=== PATIENT | female | born 1940 | race Hispanic/Latino ===

== ENCOUNTER 2016-10-18 11:18 | Observation (INO) | payer MEDICAID, OTHER ==
[2016-10-18 11:21] VITALS: BMI 25.9
--- NOTE | 2016-10-18 11:43 | ED PDOC ---
HPI: General Adult Time Seen by Provider: 10/18/16 11:42 Chief Complaint (Nursing): Trauma Chief Complaint (Provider): fall History Per: Patient, EMS Additional Complaint(s): 76 year old female with no past medical history presents to ED with facial and head trauma s/p accidental trip and fall. Patient was walking outside when she tripped on sidewalk and fell face forward hitting the ground. She did not sustain LOC, she denies dizziness or syncope prior to fall. She has been able to walk since time of fall and denies any upper or lower extremity injuries. Patient states tetanus is up to date. She arrives via ambulance. Past Medical History Reviewed: Historical Data, Nursing Documentation, Vital Signs Vital Signs: Last Vital Signs Temp 98.2 F 10/18/16 11:22 Pulse 81 10/18/16 11:22 Resp 17 10/18/16 11:22 BP 148/85 10/18/16 11:22 Pulse Ox 98 10/18/16 15:34 - Medical History PMH: No Chronic Diseases - Surgical History Other surgeries: benign tumor of breast removed, "removal of benign vaginal tumor" - Family History Family History: States: No Known Family Hx - Living Arrangements Living Arrangements: With Family - Social History Current smoker - smoking cessation education provided: No Alcohol: < 2 Drinks/Day (drinks wine every night) Drugs: Denies - Immunization History Hx Tetanus Toxoid Vaccination: Yes - Home Medications Home Medications: Ambulatory Orders Medication Instructions Recorded Biotin [Biotin] 1 cap PO DAILY 10/18/16 Cholecalciferol [Vitamin D 1000 IU] 1,000 unit PO DAILY 10/18/16 Escitalopram [Lexapro] 20 mg PO DAILY 10/18/16 - Allergies Allergies/Adverse Reactions: Allergies Allergy/AdvReac Type Severity Reaction Status Date / Time No Known Allergies Allergy Verified 10/18/16 11:34 Review of Systems ROS Statement: Except As Marked, All Systems Reviewed And Found Negative ENT: Positive for: Other (facial trauma s/p fall) Neurological: Positive for: Other (head injury with no LOC). Negative for: Dizziness Physical Exam - Reviewed Nursing Documentation Reviewed: Yes Vital Signs Reviewed: Yes - Physical Exam Appears: Positive for: Well, Non-toxic, No Acute Distress Skin: Negative for: Rash Eye Exam: Positive for: EOMI, PERRL, Other (left periorbital contusion noted, no conjunctival erythema or hemorrhage noted) ENT: Positive for: Other (moderate swelling to left maxillary region, full rom lower mandible, no dental fractures, superficial lower lip laceration not involving nicolas border with no active bleeding) Neck: Positive for: Painless ROM. Negative for: Pain On Movement Of Neck Cardiovascular/Chest: Positive for: Regular Rate, Rhythm Respiratory: Positive for: Normal Breath Sounds Extremity: Positive for: Normal ROM. Negative for: Tenderness, Deformity, Swelling Neurologic/Psych: Positive for: Alert, Oriented - Laboratory Results Result Diagrams: 10/18/16 15:01 10/18/16 15:01 - ECG Interpretation Of ECG: NSR 71 bpm, no acute finding, reviewed by PA and ED attending O2 Sat by Pulse Oximetry: 98 Pulse Ox Interpretation: Normal - Other Rad CT head X-Ray: Read By Radiologist X-Ray Interpretation: see below CT facial bones X-Ray: Read By Radiologist X-Ray Interpretation: see below CXR X-Ray: Viewed By Me, Read By Radiologist X-Ray Interpretation: Opacity at medial right lung base, possibly artifact from oblique position Medical Decision Making Medical Decision Makin76 year old with head and facial trauma. Patient is awake and alert x 3 upon arrival. Plan: CT head and facial bones PO tylenol CT head: IMPRESSION: Very small right convexity subarachnoid hemorrhage. Fluid in left maxillary antrum consistent with left maxillary fracture. See report of CT maxillofacial of same date. These findings were discussed by telephone with ANDRES Zamora at 1:[address] p[address]m. on 10/18/2016 CT facial bones: FINDINGS: NASAL BONES: There is a nondisplaced fracture of the base of left nasal bone. There is no right nasal fracture. Anterior maxillary spine is intact. ORBITS: There is a subtle nondisplaced fracture of the left orbital floor. This is best demonstrated on the reformatted sagittal views. The lamina papyracea is intact. There is no intraorbital hemorrhage. The globes are rounded and symmetric. PARANASAL SINUSES/ MASTOIDS: There is fracture of the anterior wall/ floor of left maxillary sinus. There is dependent fluid/blood in the left maxillary antrum. MAXILLA: See above. Extensive soft tissue swelling left infraorbital extending into left inferior palpebrum. There is a saurabh soft tissue hematoma seen in the inferior left maxillary soft tissues. MANDIBLE/ TEMPOROMANDIBULAR JOINTS: Unremarkable. SKULL BASE: Unremarkable. TEMPORAL BONES: Middle ears and mastoid grossly unremarkable. OTHER FINDINGS: None. IMPRESSION: Nondisplaced fracture left orbital floor. Fracture anterior wall/floor of left maxillary sinus. Blood in left maxillary antrum. Fracture base of left nasal bone. Extensive soft tissue swelling/ hemorrhage left maxillary extending to left inferior palpebrum. Case was d/w neurosurgery leaf conditioner helper, Dr. Iyer who states that no neurosurgical intervention is indicated with above CT head finding. PMD is Dr. Leon who states to admit patient for observation and q4hr neuro checks. Dr. Lenz, hospitalist to admit patient. Patient is aware of and agrees with admission. Disposition - Clinical Impression Clinical Impression: Subarachnoid bleed, Facial fracture, Fall - Patient ED Disposition Is Patient to be Admitted: Yes - Disposition Disposition Time: 15:34 Condition: FAIR - Pt Status Changed To: Hospital Disposition Of: Observation - POA Present On Arrival: None Results - Lab Results Lab Results: 10/18/16 10/18/16 10/18/16 15:01 15:01 15:01 WBC 9.8 RBC 4.52 Hgb 12.9 Hct 38.5 MCV 85.1 MCH 28.4 MCHC 33.4 RDW 14.3 Plt Count 234 MPV 7.7 Neut % (Auto) 77.3 H Lymph % (Auto) 16.3 L [place] % (Auto) 5.1 Eos % (Auto) 0.7 Baso % (Auto) 0.6 Neut # 7.6 H Lymph # 1.6 [place] # 0.5 Eos # 0.1 Baso # 0.1 PT 11.3 INR 1.1 APTT 27.1 Sodium 138 Potassium 4.0 Chloride 105 Carbon Dioxide 24 Anion Gap 14 BUN 17 Creatinine 0.7 Est GFR ( Amer) > 60 Est GFR (Non-Af Amer) > 60 Random Glucose 118 H Calcium 9.6 Total Bilirubin 0.4 AST 38 H ALT 46 Alkaline Phosphatase 69 Total Protein 7.5 Albumin 4.4 Globulin 3.0 Albumin/Globulin Ratio 1.5
--- NOTE | 2016-10-18 14:01 | CT ---
PROCEDURE: CT HEAD WITHOUT CONTRAST. HISTORY: trauma COMPARISON: None available. TECHNIQUE: Axial computed tomography images were obtained through the head/brain without intravenous contrast. Radiation dose: Total exam DLP = 855.04 mGy-cm. This CT exam was performed using one or more of the following dose reduction techniques: Automated exposure control, adjustment of the mA and/or kV according to patient size, and/or use of iterative reconstruction technique. FINDINGS: HEMORRHAGE: Very small amount of subarachnoid blood over the right frontal convexity. No evidence of subpleural or epidural hemorrhage. No parenchymal hemorrhage. BRAIN: No mass effect or edema. Minimal age-appropriate atrophy. VENTRICLES: No hydrocephalus. No intraventricular hemorrhage. No midline shift. No evidence of downward herniation. Basilar cisterns preserved. CALVARIUM: Unremarkable. PARANASAL SINUSES: Dependent fluid within left maxillary antrum consistent with fracture of lateral wall left maxillary antrum demonstrated on CT maxillofacial of same date. MASTOID AIR CELLS: Unremarkable as visualized. No inflammatory changes. OTHER FINDINGS: None. IMPRESSION: Very small right convexity subarachnoid hemorrhage. Fluid in left maxillary antrum consistent with left maxillary fracture. See report of CT maxillofacial of same date. These findings were discussed by telephone with ANDRES Zamora at 1:55 p.m. on 10/18/2016
[2016-10-18] MEDS ORDERED: Sodium Chloride 0.9% 1,000 ML IV STA (14:03)
--- NOTE | 2016-10-18 14:34 | CT ---
PROCEDURE: CT MAXILLOFACIAL BONES WITHOUT CONTRAST HISTORY: trauma COMPARISON: None TECHNIQUE: Contiguous axial CT images of the maxillofacial bones were obtained. Coronal and sagittal reformats were generated. Radiation dose: Total exam DLP = 718.67 mGy-cm. This CT exam was performed using one or more of the following dose reduction techniques: Automated exposure control, adjustment of the mA and/or kV according to patient size, and/or use of iterative reconstruction technique. FINDINGS: NASAL BONES: There is a nondisplaced fracture of the base of left nasal bone. There is no right nasal fracture. Anterior maxillary spine is intact. ORBITS: There is a subtle nondisplaced fracture of the left orbital floor. This is best demonstrated on the reformatted sagittal views. The lamina papyracea is intact. There is no intraorbital hemorrhage. The globes are rounded and symmetric. PARANASAL SINUSES/ MASTOIDS: There is fracture of the anterior wall/ floor of left maxillary sinus. There is dependent fluid/blood in the left maxillary antrum. MAXILLA: See above. Extensive soft tissue swelling left infraorbital extending into left inferior palpebrum. There is a saurabh soft tissue hematoma seen in the inferior left maxillary soft tissues. MANDIBLE/ TEMPOROMANDIBULAR JOINTS: Unremarkable. SKULL BASE: Unremarkable. TEMPORAL BONES: Middle ears and mastoid grossly unremarkable. OTHER FINDINGS: None. IMPRESSION: Nondisplaced fracture left orbital floor. Fracture anterior wall/floor of left maxillary sinus. Blood in left maxillary antrum. Fracture base of left nasal bone. Extensive soft tissue swelling/ hemorrhage left maxillary extending to left inferior palpebrum.
[2016-10-18 15:16] LABS: BASO # 0.1 K/uL (0.0-0.2); BASO % 0.6 % (0.0-2.0); EOS # 0.1 K/uL (0.0-0.7); EOS % 0.7 % (0.0-4.0); HEMATOCRIT 38.5 % (34.0-47.0); LYMPH # 1.6 K/uL (1.0-4.3); LYMPH % 16.3 % (20.0-40.0); MEAN CELL VOLUME 85.1 fl (81.0-99.0); MEAN CORPUSCULAR HEMOGLOBIN 28.4 pg (27.0-31.0); MEAN CORPUSCULAR HGB CONC 33.4 g/dL (33.0-37.0); MEAN PLATELET VOLUME 7.7 fl (7.2-11.7); MONO # 0.5 K/uL (0.0-0.8); MONO % 5.1 % (0.0-10.0); NEUT # 7.6 K/uL (1.8-7.0); NEUT % 77.3 % (50.0-75.0); NRBC % 0.1 % (0.0-0.0); RED CELL DISTRIBUTION WIDTH 14.3 % (11.5-14.5); WHITE BLOOD COUNT 9.8 K/uL (4.8-10.8)
--- NOTE | 2016-10-18 15:25 | RAD ---
HISTORY: clearance COMPARISON: No prior. FINDINGS: LUNGS: Questionable patchy opacity at medial right lung base. Patient is obliquely positioned and this may represent vessels. PLEURA: No significant pleural effusion identified, no pneumothorax apparent. CARDIOVASCULAR: Normal. OSSEOUS STRUCTURES: Thoracic dextroscoliosis. VISUALIZED UPPER ABDOMEN: Normal. OTHER FINDINGS: None. IMPRESSION: Opacity at medial right lung base, possibly artifact due to oblique positioning.
[2016-10-18 15:33] LABS: BLOOD UREA NITROGEN 17 mg/dl (7-17); CARBON DIOXIDE 24 mmol/L (22-30); CHLORIDE 105 mmol/L (98-107); GFR AFRICAN-AMERICAN > 60; GLUCOSE,RANDOM 118 mg/dL (65-105); SODIUM 138 mmol/l (132-148)
[2016-10-18 15:34] LABS: ALB/GLOB RATIO 1.5 (1.0-2.1); ALKALINE PHOSPHATASE 69 U/L (38-126); ALT/SGPT 46 U/L (9-52); AST/SGOT 38 U/L (14-36); BILIRUBIN,TOTAL 0.4 mg/dl (0.2-1.3); CALCIUM 9.6 mg/dL (8.4-10.2); TOTAL PROTEIN 7.5 G/DL (6.3-8.2)
[2016-10-18 15:41] LABS: PARTIAL THROMBOPLASTIN TIME 27.1 Seconds (25.6-37.1)
--- NOTE | 2016-10-18 16:20 | CP.PCM.HP ---
History of Present Illness - History of Present Illness History of Present Illness: Hospitalist Admission H&P (Patient was seen and examined in the ER Bed 18B at 3: 45 PM) PMD: Dr. Leon Very pleasant 76 year old female who presents to [facility] ER with a chief complaint of fall. Earlier today at around 10:45 AM patient was walking to the grocery store dragging a shopping cart behind her when the tip of her toe of one foot ( she can not recall which one) got caughter between the spacing in the sidewalk causing her to trip, lose her balance, and fall onto her face on the left side. She was then brought to the ER for further evaluation. Prior to the fall there was NO chest pain, NO palpitations, NO SOB, NO diaphoresis. There was NO loss of consciousness after the fall. She does not recall hitting any other part of her body other than her face. She is not experiencing any pain currently on any of her bony prominences. Patient explains that she has been preoccupied with the care of her who suffered a CVA in August 2015 causing aphasia. She states that he requires 24 hour care, that she is the sole health care provider for him, and that she just received a letter from Medicaid that he was going to be losing his coverage in 10 days. She had bumped into her town [facility] a few days ago and states that she was supposed to have a meeting with him tomorrow to see if he can help with her 's Medicaid issue. She is worried about making this [facility] with the [facility] as she fell and is now admitted to the hospital. She has arranged for neighbor to care for today and into tomorrow as she is in the hospital. Currently upon Full ROS NO chest pain, NO palpitations, NO SOB/Cough/Wheezing, NO Abdominal Pain, NO n/v /d/c, NO burning/pain with urinations, NO lightheadedness/dizziness, NO headaches, NO new changes in vision/eye pain, NO new changes in hearing/ear pain , NO paresthesias, (+) Left Facial Pain pounding in nature. PMHx: Anxiety, Astigmatism PSHx: Unspecified Breast Lumpectomy without Chemo/Radiation, Unspecified Uterine Tumor Removal (in [place] in 2000) ALL: NKDA Medications: Lexapro 20 mg PO 1x/day (confirmed with [facility] [address] [phone]) Social Hx: Instructional Paraprofessional, Lives with her , NO tobacco, (+) Alcohol: Wine 2 glasses a day, NO illicit drugs. Family Hx: Mom (Unspecified Kidney Disease, Unspecified CAD), Dad (DM unspecified type, Unspecified CAD) Present on Admission - Present on Admission Any Indicators Present on Admission: Yes History of DVT/PE: No History of Uncontrolled Diabetes: No Urinary Catheter: No Review of Systems - Review of Systems Review of Systems: Please see HPI above Past Patient History - Past Medical History & Family History Pertinent Family History: Please see HPI above - Past Social History Alcohol: < 2 Drinks/Day (drinks wine every night) Drugs: Denies Meds Allergies/Adverse Reactions: Allergies Allergy/AdvReac Type Severity Reaction Status Date / Time No Known Allergies Allergy Verified 10/18/16 11:34 Physical Exam - Constitutional Appears: Non-toxic, No Acute Distress - Head Exam Additional comments: Left Facial/Orbital Bruising with edema present - Eye Exam Eye Exam: EOMI, PERRL Pupil Exam: NORMAL ACCOMODATION, PERRL Additional comments: Left Eye scleral erythema - ENT Exam ENT Exam: Mucous Membranes Moist, Normal Exam, Normal External Ear Exam, Normal Oropharynx - Neck Exam Neck exam: Positive for: Normal Inspection Additional comments: NO lymphadenopathy NO thyromegaly - Respiratory Exam Respiratory Exam: Clear to Auscultation Bilateral, NORMAL BREATHING PATTERN Additional comments: CTA B/L NO R/R/W - Cardiovascular Exam Cardiovascular Exam: REGULAR RHYTHM, +S1, +S2 Additional comments: NS1 and NS2 NO M/R/G - GI/Abdominal Exam GI & Abdominal Exam: Normal Bowel Sounds, Soft Additional comments: BSx4 Soft NT NO HSM NO guarding/rebound tenderness - Neurological Exam Neurological exam: Alert, CN II-XII Intact, Oriented x3 - Psychiatric Exam Psychiatric exam: Anxious Additional comments: Patient is worried about being in the hospital and therefore being away from her . Results - Vital Signs Recent Vital Signs: Last Vital Signs Temp 98.2 F 10/18/16 11:22 Pulse 81 10/18/16 11:22 Resp 17 10/18/16 11:22 BP 148/85 10/18/16 11:22 Pulse Ox 98 10/18/16 15:34 - Labs Result Diagrams: 10/18/16 15:01 10/18/16 15:01 Assessment & Plan (1) Subarachnoid bleed Assessment and Plan: As per CT Head done in the ER ER Physician spoke with Neurosurgeon Dr. Iyer and no surgery recommended at this time. Repeat CT Head ordered for 8 AM 10/19/16 Follow HgB/Hct Status: Acute (2) Facial fracture Assessment and Plan: As per CT Head and CT Maxillofacial: nondisplaced fracture of left orbital floor , fracture anterior wall/floor of left maxillary sinus, blood in left maxillary antrum, fractured base of left nasal bone, extensive soft tissue swelling/ hemorrhage left maxillary extending to left inferior palpebrum NO Maxillofacial Surgeon at our hospital as per contacting office machine punch operator Patient will need to have outpatient follow up Ice Pack Q4H to help reduce the facial swelling F/U Repeat CT Head 10/19/16 Status: Acute (3) Anxiety Assessment and Plan: Lexapro 20 mg PO 1x/day Xanax 0.5 mg PO Q8H PRN Anxiety Status: Chronic (4) Chest x-ray abnormality Assessment and Plan: Chest X Ray done in the ER shows (as per report) patchy opacity right lung base likely secondary to positioning Status: Acute (5) Prophylactic measure Assessment and Plan: Protonix 40 mg PO 1x/day NO anticoagulation considering the subarachnoid bleed Status: Acute
--- NOTE | 2016-10-18 16:35 | CP.PCM.PCO ---
Physician Communication Note - Physician Communication Note Physician Communication Note: NO anticoagulation as there is Right Subarachnoid Bleed
[2016-10-18] MEDS: Pantoprazole 40 mg EC Tab PO SCH (21:53)
[2016-10-19 06:39] LABS: BASO # 0.1 K/uL (0.0-0.2); BASO % 1.3 % (0.0-2.0); EOS # 0.3 K/uL (0.0-0.7); EOS % 4.6 % (0.0-4.0); HEMATOCRIT 36.6 % (34.0-47.0); LYMPH # 2.2 K/uL (1.0-4.3); LYMPH % 35.2 % (20.0-40.0); MEAN CELL VOLUME 86.3 fl (81.0-99.0); MEAN CORPUSCULAR HEMOGLOBIN 27.9 pg (27.0-31.0); MEAN CORPUSCULAR HGB CONC 32.4 g/dL (33.0-37.0); MEAN PLATELET VOLUME 7.9 fl (7.2-11.7); MONO # 0.6 K/uL (0.0-0.8); MONO % 8.8 % (0.0-10.0); NEUT # 3.1 K/uL (1.8-7.0); NEUT % 50.1 % (50.0-75.0); RED CELL DISTRIBUTION WIDTH 14.5 % (11.5-14.5); WHITE BLOOD COUNT 6.3 K/uL (4.8-10.8)
[2016-10-19 06:54] LABS: BLOOD UREA NITROGEN 12 mg/dl (7-17); CARBON DIOXIDE 27 mmol/L (22-30); CHLORIDE 106 mmol/L (98-107); GFR AFRICAN-AMERICAN > 60; GLUCOSE,RANDOM 95 mg/dL (65-105); SODIUM 139 mmol/l (132-148)
[2016-10-19 07:03] LABS: T4 6.24 ug/dl (5.5-11.0)
[2016-10-19 07:17] LABS: THYROID STIMULATING HORMONE 2.04 mIU/ML (0.46-4.68)
[2016-10-19] MEDS: Pantoprazole 40 mg EC Tab PO SCH (08:37)
--- NOTE | 2016-10-19 11:26 | CT ---
PROCEDURE: CT HEAD WITHOUT CONTRAST. HISTORY: Right Subarachnoid Bleed COMPARISON: Noncontrast head CT performed 10/18/16 TECHNIQUE: Axial computed tomography images were obtained through the head/brain without intravenous contrast. Radiation dose: Total exam DLP = 822.38 mGy-cm. This CT exam was performed using one or more of the following dose reduction techniques: Automated exposure control, adjustment of the mA and/or kV according to patient size, and/or use of iterative reconstruction technique. FINDINGS: HEMORRHAGE: No intracranial hemorrhage. Previously demonstrated tiny amount of subarachnoid blood within the right frontal convexity is not appreciated on today's examination. BRAIN: No mass effect or edema. The evans-white matter differentiation appears intact. Please note that MRI with diffusion imaging is more sensitive in the detection of acute ischemic event. VENTRICLES: No hydrocephalus. CALVARIUM: Unremarkable. PARANASAL SINUSES: Dependent fluid within the left maxillary sinus consistent with fracture of the left lateral maxillary antrum demonstrated on CT performed 10/18/16. MASTOID AIR CELLS: Unremarkable as visualized. No inflammatory changes. OTHER FINDINGS: None. IMPRESSION: No acute intracranial pathology identified. Dependent fluid within the left maxillary sinus consistent with fracture of the left lateral maxillary antrum demonstrated on CT performed 10/18/16.
--- NOTE | 2016-10-19 14:51 | CP.PCM.DIS ---
Provider - Provider Date of Admission: 10/18/16 15:14 Attending physician: Michael Lenz MD Primary care physician: Dr. Leon Consults: neurosurgery consult PT consult Time Spent in preparation of Discharge (in minutes): 20 Hospital Course - Lab Results Lab Results: Most Recent Lab Values WBC 6.3 K/uL (4.8-10.8) 10/19/16 05:25 RBC 4.24 Mil/uL (3.80-5.20) 10/19/16 05:25 Hgb 11.8 g/dL (12.0-16.0) L 10/19/16 05:25 Hct 36.6 % (34.0-47.0) 10/19/16 05:25 MCV 86.3 fl (81.0-99.0) 10/19/16 05:25 MCH 27.9 pg (27.0-31.0) 10/19/16 05:25 MCHC 32.4 g/dL (33.0-37.0) L 10/19/16 05:25 RDW 14.5 % (11.5-14.5) 10/19/16 05:25 Plt Count 217 K/uL (130-400) 10/19/16 05:25 MPV 7.9 fl (7.2-11.7) 10/19/16 05:25 Neut % (Auto) 50.1 % (50.0-75.0) 10/19/16 05:25 Lymph % (Auto) 35.2 % (20.0-40.0) 10/19/16 05:25 [place] % (Auto) 8.8 % (0.0-10.0) 10/19/16 05:25 Eos % (Auto) 4.6 % (0.0-4.0) H 10/19/16 05:25 Baso % (Auto) 1.3 % (0.0-2.0) 10/19/16 05:25 Neut # 3.1 K/uL (1.8-7.0) 10/19/16 05:25 Lymph # 2.2 K/uL (1.0-4.3) 10/19/16 05:25 [place] # 0.6 K/uL (0.0-0.8) 10/19/16 05:25 Eos # 0.3 K/uL (0.0-0.7) 10/19/16 05:25 Baso # 0.1 K/uL (0.0-0.2) 10/19/16 05:25 PT 11.3 Seconds (9.8-13.1) 10/18/16 15:01 INR 1.1 (0.9-1.2) 10/18/16 15:01 APTT 27.1 Seconds (25.6-37.1) 10/18/16 15:01 Sodium 139 mmol/l (132-148) 10/19/16 05:25 Potassium 4.0 MMOL/L (3.6-5.0) 10/19/16 05:25 Chloride 106 mmol/L (98-107) 10/19/16 05:25 Carbon Dioxide 27 mmol/L (22-30) 10/19/16 05:25 Anion Gap 11 (10-20) 10/19/16 05:25 BUN 12 mg/dl (7-17) 10/19/16 05:25 Creatinine 0.7 mg/dL (0.7-1.2) 10/19/16 05:25 Est GFR ( Amer) > 60 10/19/16 05:25 Est GFR (Non-Af Amer) > 60 10/19/16 05:25 Random Glucose 95 mg/dL (65-105) 10/19/16 05:25 Calcium 9.0 mg/dL (8.4-10.2) 10/19/16 05:25 Total Bilirubin 0.4 mg/dl (0.2-1.3) 10/18/16 15:01 AST 38 U/L (14-36) H 10/18/16 15:01 ALT 46 U/L (9-52) 10/18/16 15:01 Alkaline Phosphatase 69 U/L (38-126) 10/18/16 15:01 Total Protein 7.5 G/DL (6.3-8.2) 10/18/16 15:01 Albumin 4.4 g/dL (3.5-5.0) 10/18/16 15:01 Globulin 3.0 gm/dL (2.2-3.9) 10/18/16 15:01 Albumin/Globulin Ratio 1.5 (1.0-2.1) 10/18/16 15:01 Thyroxine (T4) 6.24 ug/dl (5.5-11.0) 10/19/16 05:25 TSH 3rd Generation 2.04 mIU/ML (0.46-4.68) 10/19/16 05:25 - Hospital Course Hospital Course: Very pleasant 76 year old female presented to [facility] ER with a chief complaint of fall. Earlier today at around 10:45 AM patient was walking to the grocery store dragging a shopping cart behind her when the tip of her toe of one foot (she can not recall which one) got caught between the spacing in the sidewalk causing her to trip, lose her balance, and fall onto her face on the left side. She was then brought to the ER for further evaluation. Prior to the fall there was NO chest pain, NO palpitations, NO SOB, NO diaphoresis. There was NO loss of consciousness after the fall. She does not recall hitting any other part of her body other than her face. She is not experiencing any pain currently on any of her bony prominences. CT Head showed :Very small right convexity subarachnoid hemorrhage. and CT Maxillofacial showed nondisplaced fracture of left orbital floor, fracture anterior wall/floor of left maxillary sinus, blood in left maxillary antrum, fractured base of left nasal bone, extensive soft tissue swelling/ hemorrhage left maxillary extending to left inferior palpebrum. 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 Will discharge patient home Follow up with PMD 1.Small Subarachnoid bleed after fall -- resolved Ct head showed very small right convexity subarachnoid hemorrhage Neurosurgeon Dr. Iyer consulted and no surgery recommended Repeat CT Head showed resolution of the small bleed 2. Facial fracture As per CT Head and CT Maxillofacial: nondisplaced fracture of left orbital floor , fracture anterior wall/floor of left maxillary sinus, blood in left maxillary antrum, fractured base of left nasal bone, extensive soft tissue swelling/ hemorrhage left maxillary extending to left inferior palpebrum NO Maxillofacial Surgeon at our hospital but at this point patient is stable. No surgical intervention is necessary since fractures are not displaced Patient will need to have outpatient follow up Ice Pack to help reduce the facial swelling tylenol pRN for pain 3.Anxiety Lexapro 20 mg PO 1x/day Xanax 0.5 mg PO Q8H PRN Anxiety Discharge Exam - Head Exam Additional comments: left periorbital and maxillary swelling and echymosis left scleral hemorrhage small left lower lip laceration - Eye Exam Eye Exam: PERRL Pupil Exam: NORMAL ACCOMODATION - ENT Exam ENT Exam: Mucous Membranes Dry, Normal Exam - Neck Exam Neck exam: Full Rom, Normal Inspection - Respiratory Exam Respiratory Exam: Clear to PA & Lateral, NORMAL BREATHING PATTERN. absent: Rales, Rhonchi, Wheezes - Cardiovascular Exam Cardiovascular Exam: REGULAR RHYTHM, RRR, +S1, +S2. absent: JVD - GI/Abdominal Exam GI & Abdominal Exam: Normal Bowel Sounds, Soft. absent: Distended, Guarding, Rebound, Tenderness - Rectal Exam Rectal Exam: Deferred - Extremities Exam Extremities exam: normal capillary refill, normal inspection, pedal pulses present - Back Exam Back exam: NORMAL INSPECTION - Neurological Exam Neurological exam: Alert, CN II-XII Intact, Oriented x3, Reflexes Normal - Psychiatric Exam Psychiatric exam: Normal Affect - Skin Skin Exam: Dry, Warm Discharge Plan - Follow Up Plan Condition: STABLE Disposition: HOME/ ROUTINE Patient education suggested?: Yes Instructions: Concussion (DC) Referrals: Param Leon MD [Family Provider] -
[2016-10-19 15:27] VITALS: BP 102/64; PULSE 64; RESP 20; TEMP 98.5; O2SAT 96
--- NOTE | 2016-10-19 17:59 | CARD ---
APPROVED REPORT EKG Measurement Heart [id number] <Conclusion> Normal sinus rhythm nonspecific st-t changes
== END 2016-10-19 18:00 | disposition home or self-care (01) ==
LOC: H.ER 11:18 → H.ERHOLD 15:14 → H.TEL 18:54
PROVIDERS: ADMIT Family Medicine; ATTEND Family Medicine
DX: S06.6X0A Traumatic subarachnoid hemorrhage without loss of consciousness, initial encounter (principal); W01.0XXA Fall on same level from slipping, tripping and stumbling without subsequent striking against object, initial encounter; Y92.480 Sidewalk as the place of occurrence of the external cause; S02.40DA Maxillary fracture, left side, initial encounter for closed fracture; S02.32XA Fracture of orbital floor, left side, initial encounter for closed fracture; S02.2XXA Fracture of nasal bones, initial encounter for closed fracture; F41.9 Anxiety disorder, unspecified; S01.511A Laceration without foreign body of lip, initial encounter; R91.8 Other nonspecific abnormal finding of lung field
CPT/HCPCS: 36415; 70450; 70486; 71010; 80048; 80053; 84436; 84443; 85025; 85610; 85730; 93005; 97116; 97161; 97166; 99285; G0378; G8978; G8979; G8980; G8987; G8988; G8989; J7040